=== PATIENT | female | born 1990 ===

== ENCOUNTER 2016-12-30 12:58 | Emergency (ER) | payer OTHER ==
[2016-12-30 12:58] VITALS: BMI 25.8
[2016-12-30 13:05] VITALS: BP 120/70; PULSE 84; RESP 20; TEMP 98; O2SAT 98
--- NOTE | 2016-12-30 13:31 | ED PDOC ---
Lower Extremity Pain/Injury Time Seen by Provider: 12/30/16 12:58 Chief Complaint (Nursing): Lower Extremity Problem/Injury Chief Complaint (Provider): Lower Extremity Problem/Injury History Per: Patient History/Exam Limitations: no limitations Onset/Duration Of Symptoms: Days (xlast night) Current Symptoms Are (Timing): Still Present Additional Complaint(s): Rosemary Fair is a 26 year old female who presents to the emergency department with a complaint of left sided back pain radiating to her left leg associated with pain to her left hand (third finger) Past Medical History Vital Signs: Last Vital Signs Temp 98 F 12/30/16 13:03 Pulse 84 12/30/16 13:03 Resp 20 12/30/16 13:03 BP 120/70 12/30/16 13:03 Pulse Ox 98 12/30/16 13:03 - Medical History PMH: Migraine - Surgical History Surgical History: Appendectomy - Family History Family History: States: Unknown Family Hx - Home Medications Home Medications: Ambulatory Orders Medication Instructions Recorded Ibuprofen [Advil] 2 tab PO PRN PRN 10/12/16 Cyclobenzaprine [Cyclobenzaprine 10 mg PO BID #14 tab 12/30/16 HCl] Ibuprofen [Motrin] 400 mg PO Q6 #30 tab 12/30/16 - Allergies Allergies/Adverse Reactions: Allergies Allergy/AdvReac Type Severity Reaction Status Date / Time No Known Allergies Allergy Verified 12/30/16 13:03 - ECG O2 Sat by Pulse Oximetry: 98 - Radiology X-Ray: Interpreted by Ms X-Ray Interpretation: No Acute Disease Medical Decision Making Medical Decision Making: dx: back contusion/finger sprain will be d.c on flexril and motrin for pain control advised pain will persist for at least 2-3 days and to f/u with pmd if still persistent. Disposition - Clinical Impression Clinical Impression: Low back strain, Back contusion, Finger contusion - Patient ED Disposition Is Patient to be Admitted: No Counseled Patient/Family Regarding: Studies Performed, Diagnosis, Need For Followup, Rx Given - Disposition Disposition: Routine/Home Disposition Time: 13:52 Condition: STABLE Prescriptions: Cyclobenzaprine [Cyclobenzaprine HCl] 10 mg PO BID #14 tab Ibuprofen [Motrin] 400 mg PO Q6 #30 tab Instructions: Contusion in Adults (ED)
--- NOTE | 2016-12-30 15:13 | RAD ---
PROCEDURE: Left Hand Radiographs. HISTORY: hand injury COMPARISON: None available. FINDINGS: BONES: No acute displaced fracture. JOINTS: No dislocation. SOFT TISSUES: Unremarkable. No evidence of radiopaque foreign body. OTHER FINDINGS: None. IMPRESSION: No acute displaced fracture, dislocation, or significant joint effusion identified. If symptoms persist, or if there is continued clinical concern, x-ray follow-up in 7-10 days should be considered.
== END 2016-12-30 14:47 | disposition home or self-care (01) ==
LOC: H.ER 12:58
DX: M79.605 Pain in left leg (principal); S39.012A Strain of muscle, fascia and tendon of lower back, initial encounter; S30.0XXA Contusion of lower back and pelvis, initial encounter; S60.032A Contusion of left middle finger without damage to nail, initial encounter; W10.8XXA Fall (on) (from) other stairs and steps, initial encounter

== ENCOUNTER 2017-01-04 19:02 | Emergency (ER) | payer OTHER ==
[2017-01-04 19:02] VITALS: BMI 25.8
[2017-01-04 19:29] VITALS: BP 124/58; PULSE 88; RESP 18; TEMP 98.5; O2SAT 99
--- NOTE | 2017-01-04 20:19 | ED PDOC ---
HPI: Eye Injury/Pain Time Seen by Provider: 01/04/17 19:52 Chief Complaint (Nursing): Eye Problem Chief Complaint (Provider): B/l eye irritation History Per: Patient History/Exam Limitations: no limitations Onset/Duration Of Symptoms: Days Current Symptoms Are (Timing): Still Present Injury To Eye?: No Severity: Moderate Wears Contact Lens?: No Associated Symptoms: Swelling, Itching, Discharge From Eye Additional History Per: Patient Additional Complaint(s): The pt is a 26yo female, presents to ED for evaluation of bilateral eye irritation since she started using a new mascara. Pt reports itching, discharge from her eye as well as associated swelling. Pt denies any injury or trauma to eyes. Offers no additional medical complaints. Past Medical History Reviewed: Historical Data, Nursing Documentation, Vital Signs Vital Signs: Last Vital Signs Temp 98.5 F 01/04/17 19:27 Pulse 88 01/04/17 19:27 Resp 18 01/04/17 19:27 BP 124/58 L 01/04/17 19:27 Pulse Ox 99 01/04/17 19:27 - Medical History PMH: No Chronic Diseases, Migraine - Surgical History Surgical History: Appendectomy - Family History Family History: States: Unknown Family Hx - Home Medications Home Medications: Ambulatory Orders Medication Instructions Recorded Ibuprofen [Advil] 2 tab PO PRN PRN 10/12/16 Cyclobenzaprine [Cyclobenzaprine 10 mg PO BID #14 tab 12/30/16 HCl] Ibuprofen [Motrin] 400 mg PO Q6 #30 tab 12/30/16 Ciprofloxacin 0.3% [Ciloxan 0.3% 1 drop BOTHEYES QID #1 bottle 01/04/17 Ophth SOLN] Olopatadine 0.1% Opht [Patanol 5 1 drop BOTHEYES BID #1 bottle 01/04/17 Ml] - Allergies Allergies/Adverse Reactions: Allergies Allergy/AdvReac Type Severity Reaction Status Date / Time No Known Allergies Allergy Verified 12/30/16 13:03 Review of Systems ROS Statement: Except As Marked, All Systems Reviewed And Found Negative Eyes: Positive for: Redness, Other (swelling, discharge) Physical Exam - Reviewed Nursing Documentation Reviewed: Yes Vital Signs Reviewed: Yes - Physical Exam Appears: Positive for: Well, Non-toxic, No Acute Distress Head Exam: Positive for: ATRAUMATIC, NORMAL INSPECTION, NORMOCEPHALIC Skin: Positive for: Normal Color, Warm, DRY Eye Exam: Positive for: EOMI, PERRL, Other (visual acuity 20/40 left, right and bilaterally. no fluoroscene uptake.) Neck: Positive for: Normal, Supple Respiratory: Negative for: Respiratory Distress Neurologic/Psych: Positive for: Alert, Oriented - ECG O2 Sat by Pulse Oximetry: 99 Medical Decision Making Medical Decision Making: Time: 1999 Impression: Eye irritation due to new mascara use Plan: -- Fluoroscene eye exam -- no uptake noted. Pt stable for d/c home. Advised to stop use of eye products. Will give pt Rx eye drops and advised to f/u with Dr. Desai, opthalmologist. Scribe Attestation: Documented by Mayra Fitzpatrick acting as a scribe for VALENTIN Whalen Provider Attestation: All medical record entries made by the Scribe were at my direction and personally dictated by me. I have reviewed the chart and agree that the record accurately reflects my personal performance of the history, physical exam, medical decision making, and the department course for this patient. I have also personally directed, reviewed, and agree with the discharge instructions and disposition. Disposition - Clinical Impression Clinical Impression: Conjunctivitis - Patient ED Disposition Is Patient to be Admitted: No - Disposition Referrals: Barry Desai MD [Staff Provider] - Disposition: Routine/Home Disposition Time: 20:53 Condition: FAIR Prescriptions: Ciprofloxacin 0.3% [Ciloxan 0.3% Ophth SOLN] 1 drop BOTHEYES QID #1 bottle Olopatadine 0.1% Opht [Patanol 5 Ml] 1 drop BOTHEYES BID #1 bottle Instructions: Conjunctivitis (ED) Forms: [facility] ED School/Work Excuse Print Language: GEORGIAN
== END 2017-01-04 20:53 | disposition home or self-care (01) ==
LOC: H.ER 19:02
DX: H10.9 Unspecified conjunctivitis (principal)

== ENCOUNTER 2017-04-21 10:14 | Emergency (ER) | payer OTHER ==
[2017-04-21 10:24] VITALS: BP 113/72; PULSE 91; TEMP 98.4; O2SAT 98
[2017-04-21 10:26] VITALS: BMI 28.7
[2017-04-21 11:07] VITALS: RESP 19
[2017-04-21 11:31] LABS: BASO # 0.1 K/uL (0.0-0.2); BASO % 0.4 % (0.0-2.0); EOS # 0.1 K/uL (0.0-0.7); EOS % 0.9 % (0.0-4.0); HEMATOCRIT 43.2 % (34.0-47.0); LYMPH # 2.1 K/uL (1.0-4.3); MEAN CELL VOLUME 83.3 fl (81.0-99.0); MEAN CORPUSCULAR HEMOGLOBIN 27.4 pg (27.0-31.0); MEAN CORPUSCULAR HGB CONC 32.9 g/dL (33.0-37.0); MEAN PLATELET VOLUME 8.3 fl (7.2-11.7); MONO # 0.9 K/uL (0.0-0.8); MONO % 6.6 % (0.0-10.0); NEUT # 10.8 K/uL (1.8-7.0); NEUT % 77.1 % (50.0-75.0); RED CELL DISTRIBUTION WIDTH 14.6 % (11.5-14.5); WHITE BLOOD COUNT 14.1 K/uL (4.8-10.8)
--- NOTE | 2017-04-21 11:59 | ED PDOC ---
HPI: CCC, URI, Sore Throat Time Seen by Provider: 04/21/17 10:50 Chief Complaint (Nursing): Shortness Of Breath Chief Complaint (Provider): SOB History Per: Patient History/Exam Limitations: no limitations Additional Complaint(s): 26yo F inED for eval of cough x 1 month, worsened this week with cough-green sputum, malaise, sore throat, fever-100.8 and pleurtic chest pain. negative: vomiting nausea abd pain foreign travel orthopena. PERC negative. Past Medical History Reviewed: Historical Data, Nursing Documentation, Vital Signs Vital Signs: Last Vital Signs Temp 98.4 F 04/21/17 10:24 Pulse 91 H 04/21/17 10:24 Resp 19 04/21/17 10:48 BP 113/72 04/21/17 10:24 Pulse Ox 98 04/21/17 10:48 - Medical History PMH: Asthma, Migraine - Surgical History Surgical History: Appendectomy - Family History Family History: States: Unknown Family Hx - Home Medications Home Medications: Ambulatory Orders Medication Instructions Recorded Ibuprofen [Advil] 2 tab PO PRN PRN 10/12/16 Cyclobenzaprine [Cyclobenzaprine 10 mg PO BID #14 tab 12/30/16 HCl] Ibuprofen [Motrin] 400 mg PO Q6 #30 tab 12/30/16 Ciprofloxacin 0.3% [Ciloxan 0.3% 1 drop BOTHEYES QID #1 bottle 01/04/17 Ophth SOLN] Olopatadine 0.1% Opht [Patanol 5 1 drop BOTHEYES BID #1 bottle 01/04/17 Ml] Albuterol 0.083% [Albuterol 0.5 ml IH Q4 #20 neb 04/21/17 Sulfate 3 Ml] Albuterol HFA [Ventolin HFA 90 2 puff IH Q6 #200 puff 04/21/17 mcg/actuation (8 g)] Azithromycin [Zithromax] 250 mg PO DAILY #6 tab 04/21/17 Mask, Face [Nebulizer Aerosol Mask 1 dev XX PRN PRN #1 dev 04/21/17 Adult] Non-Formulary 1 ea XX DAILY #1 ea 04/21/17 - Allergies Allergies/Adverse Reactions: Allergies Allergy/AdvReac Type Severity Reaction Status Date / Time No Known Allergies Allergy Verified 04/21/17 10:42 Curb-65 Severity Score - CURB-65 Severity Score Confusion: No Bun >19mg/dl (>7mmol/L): No Respiratory Rate greater than/equal to 30: No Systolic BP <90 or Diastolic BP less than/equal 60mmHg: No Age >64: No Curb-65 Score: 0 Percentage 30-day mortality: 0.6% Review of Systems ROS Statement: Except As Marked, All Systems Reviewed And Found Negative Constitutional: Positive for: Fever Respiratory: Positive for: Cough, Shortness of Breath, Pleuritic Pain, Sputum Physical Exam - Reviewed Nursing Documentation Reviewed: Yes Vital Signs Reviewed: Yes - Physical Exam Appears: Positive for: Non-toxic, No Acute Distress, Uncomfortable Head Exam: Positive for: ATRAUMATIC, NORMAL INSPECTION, NORMOCEPHALIC Skin: Positive for: Normal Color, Warm, DRY ENT: Positive for: Normal ENT Inspection Neck: Positive for: Normal, Painless ROM Cardiovascular/Chest: Positive for: Regular Rate, Rhythm Respiratory: Positive for: Normal Breath Sounds Gastrointestinal/Abdominal: Positive for: Normal Exam, Bowel Sounds, Soft Neurologic/Psych: Positive for: Alert, Oriented - Laboratory Results Result Diagrams: 04/21/17 11:22 - ECG O2 Sat by Pulse Oximetry: 98 - Radiology X-Ray: Interpreted by Me Medical Decision Making Medical Decision Making: dx: upper resp. infection-pt with elevated WBC, pt give azithromycin in ED and will be d.c with albuterol + nebulizer and Zpack. f/u with pmd pt understands and agrees. 04/21/17 04/21/17 11:22 11:22 WBC 14.1 H RBC 5.19 Hgb 14.2 Hct 43.2 MCV 83.3 MCH 27.4 MCHC 32.9 L RDW 14.6 H Plt Count 363 MPV 8.3 Neut % (Auto) 77.1 H Lymph % (Auto) 15.0 L [place] % (Auto) 6.6 Eos % (Auto) 0.9 Baso % (Auto) 0.4 Neut # 10.8 H Lymph # 2.1 [place] # 0.9 H Eos # 0.1 Baso # 0.1 Grp A Beta Strep Ag Negative Orders Category Date Time Status CHEST TWO VIEWS (PA/LAT) [RAD] Stat Exams 04/21/17 11:12 Ordered CBC (WITH DIFFERENTIAL) Stat RUPERT 04/21/17 11:22 Completed Azithromycin [Zithromax] Med 04/21/17 11:54 Stat 500 mg PO STAT STA THROAT CULTURE Stat Micro 04/21/17 11:22 Received RAPID STREP GROUP A ANTIGEN Stat Serology 04/21/17 11:22 Completed Disposition - Clinical Impression Clinical Impression: Respiratory tract infection - Patient ED Disposition Is Patient to be Admitted: No Counseled Patient/Family Regarding: Studies Performed, Diagnosis, Need For Followup, Rx Given - Disposition Referrals: [facility] [Outside] [facility] [Outside] Disposition: Routine/Home Disposition Time: 12:04 Condition: STABLE Prescriptions: Albuterol 0.083% [Albuterol Sulfate 3 Ml] 0.5 ml IH Q4 #20 neb Albuterol HFA [Ventolin HFA 90 mcg/actuation (8 g)] 2 puff IH Q6 #200 puff Azithromycin [Zithromax] 250 mg PO DAILY #6 tab Mask, Face [Nebulizer Aerosol Mask Adult] 1 dev XX PRN PRN #1 dev PRN Reason: Wheezing Non-Formulary 1 ea XX DAILY #1 ea Instructions: Upper Respiratory Infection (ED) Print Language: LUXEMBOURGISH
--- NOTE | 2017-04-21 12:52 | RAD ---
HISTORY: cough COMPARISON: No prior study available for comparison TECHNIQUE: Chest PA and lateral FINDINGS: LUNGS: No active pulmonary disease. PLEURA: No significant pleural effusion identified. No pneumothorax apparent. CARDIOVASCULAR: Normal. OSSEOUS STRUCTURES: Minor multilevel degenerative spondylosis of the thoracic spine. VISUALIZED UPPER ABDOMEN: Normal. OTHER FINDINGS: None. IMPRESSION: No acute cardiopulmonary disease.
== END 2017-04-21 13:05 | disposition home or self-care (01) ==
LOC: H.ER 10:14
DX: J06.9 Acute upper respiratory infection, unspecified (principal); R06.2 Wheezing

== ENCOUNTER 2017-06-27 16:02 | Emergency (ER) | payer OTHER ==
[2017-06-27 16:02] VITALS: BMI 28.7
[2017-06-27 17:05] VITALS: BP 108/78; PULSE 82; RESP 16; TEMP 97.7; O2SAT 100
[2017-06-27] MEDS ORDERED: Sodium Chloride 0.9% 1,000 ML IV STA (17:16)
[2017-06-27 17:53] LABS: BASO # 0.1 K/uL (0.0-0.2); BASO % 0.8 % (0.0-2.0); EOS # 0.2 K/uL (0.0-0.7); EOS % 1.6 % (0.0-4.0); HEMATOCRIT 41.1 % (34.0-47.0); LYMPH # 2.4 K/uL (1.0-4.3); LYMPH % 18.2 % (20.0-40.0); MEAN CELL VOLUME 84.2 fl (81.0-99.0); MEAN CORPUSCULAR HEMOGLOBIN 27.7 pg (27.0-31.0); MEAN CORPUSCULAR HGB CONC 32.9 g/dL (33.0-37.0); MEAN PLATELET VOLUME 8.3 fl (7.2-11.7); MONO # 0.7 K/uL (0.0-0.8); MONO % 5.4 % (0.0-10.0); NEUT # 9.9 K/uL (1.8-7.0); NRBC % 0.2 % (0.0-0.0); RED CELL DISTRIBUTION WIDTH 14.7 % (11.5-14.5); WHITE BLOOD COUNT 13.4 K/uL (4.8-10.8)
--- NOTE | 2017-06-27 18:01 | ED PDOC ---
HPI: Female Pain Time Seen by Provider: 06/27/17 17:04 Chief Complaint (Nursing): Abdominal Pain Chief Complaint (Provider): Pelvic pain History Per: Patient History/Exam Limitations: no limitations Onset/Duration Of Symptoms: Days (x1 week) Current Symptoms Are (Timing): Still Present Pain Scale Rating Of: 9 Quality Of Discomfort: Cramping (mild) Associated Symptoms: Nausea, Vomiting. denies: Fever, Diarrhea, Urinary Symptoms, Other (vaginal bleeding) Additional Complaint(s): Rosemary King is a 27 year old female, with a past medical history of asthma, who presents to the emergency department complaining of persistent nausea and multiple daily episodes of vomiting for the last week associated with mild crampy pelvic pain and fatigue. She reports no care yet for this . Patient denies any vaginal bleeding, fever or urinary symptoms. No further medical complaints. PMD: None provided. Abnormal Vaginal Bleeding: No : 1 Para: 0 Past Medical History Reviewed: Historical Data, Nursing Documentation, Vital Signs Vital Signs: Last Vital Signs Temp 97.7 F 06/27/17 17:01 Pulse 82 06/27/17 17:01 Resp 16 06/27/17 17:01 BP 108/78 06/27/17 17:01 Pulse Ox 100 06/27/17 17:01 - Medical History PMH: Asthma, Migraine - Surgical History Surgical History: Appendectomy - Family History Family History: States: Unknown Family Hx, Hypertension - Social History Ex-Smoker (has not smoked in the last 12 months): Yes Alcohol: None Drugs: Denies - Home Medications Home Medications: Ambulatory Orders Medication Instructions Recorded Ibuprofen [Advil] 2 tab PO PRN PRN 10/12/16 Cyclobenzaprine [Cyclobenzaprine 10 mg PO BID #14 tab 12/30/16 HCl] Ibuprofen [Motrin] 400 mg PO Q6 #30 tab 12/30/16 Ciprofloxacin 0.3% [Ciloxan 0.3% 1 drop BOTHEYES QID #1 bottle 01/04/17 Ophth SOLN] Olopatadine 0.1% Opht [Patanol 5 1 drop BOTHEYES BID #1 bottle 01/04/17 Ml] Albuterol 0.083% [Albuterol 0.5 ml IH Q4 #20 neb 04/21/17 Sulfate 3 Ml] Albuterol HFA [Ventolin HFA 90 2 puff IH Q6 #200 puff 04/21/17 mcg/actuation (8 g)] Azithromycin [Zithromax] 250 mg PO DAILY #6 tab 04/21/17 Mask, Face [Nebulizer Aerosol Mask 1 dev XX PRN PRN #1 dev 04/21/17 Adult] Non-Formulary 1 ea XX DAILY #1 ea 04/21/17 Famotidine [Pepcid] 40 mg PO DAILY PRN #14 tab 05/11/17 Metoclopramide [Reglan] 1 tab PO TID PRN #20 tab 05/11/17 Multivit/Folic Acid/I 1 tab PO DAILY #100 tab 05/11/17 [ Plus] - Allergies Allergies/Adverse Reactions: Allergies Allergy/AdvReac Type Severity Reaction Status Date / Time No Known Allergies Allergy Verified 06/27/17 17:01 Review of Systems ROS Statement: Except As Marked, All Systems Reviewed And Found Negative Constitutional: Positive for: Other (fatigue). Negative for: Fever Gastrointestinal: Positive for: Nausea, Vomiting (multiple episodes) Genitourinary Female: Positive for: Pelvic Pain (mild crampy). Negative for: Dysuria, Hematuria, Vaginal Bleeding Physical Exam - Reviewed Nursing Documentation Reviewed: Yes Vital Signs Reviewed: Yes - Physical Exam Appears: Positive for: Non-toxic, No Acute Distress Head Exam: Positive for: ATRAUMATIC, NORMAL INSPECTION Skin: Positive for: Normal Color, Warm, Dry Eye Exam: Positive for: Normal appearance, EOMI, PERRL Neck: Positive for: Normal, Painless ROM, Supple Cardiovascular/Chest: Positive for: Regular Rate, Rhythm. Negative for: Murmur Respiratory: Positive for: Normal Breath Sounds. Negative for: Respiratory Distress Gastrointestinal/Abdominal: Positive for: Normal Exam, Bowel Sounds, Soft. Negative for: Tenderness, Guarding, Rebound Back: Positive for: Normal Inspection. Negative for: L CVA Tenderness, R CVA Tenderness Extremity: Positive for: Normal ROM. Negative for: Deformity, Swelling Neurologic/Psych: Positive for: Alert, Oriented - Laboratory Results Result Diagrams: 06/27/17 17:43 06/27/17 17:43 - ECG O2 Sat by Pulse Oximetry: 100 (RA) Pulse Ox Interpretation: Normal Medical Decision Making Medical Decision Making: Initial Impression: hyperemesis on Initial Plan: --Comp Metabolic Panel --CBC w/ differential --Reglan 10 mg IVP --NS IV 1,000 ml @ 1,000 mls/hr --Urinalysis --OB preg 1st Tri & OB transvag [US] --reevaluation labs reviewed, mild elev WBC and evidence dehydration US pending 7pm, endorse Dr Howell Scribe Attestation: Documented by Noah Murray, acting as a scribe for Forrest Penaloza MD Provider Scribe Attestation: All medical record entries made by the Scribe were at my direction and personally dictated by me. I have reviewed the chart and agree that the record accurately reflects my personal performance of the history, physical exam, medical decision making, and the department course for this patient. I have also personally directed, reviewed, and agree with the discharge instructions and disposition. Disposition - Clinical Impression Clinical Impression: Hyperemesis gravidarum - Patient ED Disposition Is Patient to be Admitted: Transfer of Care - Disposition Disposition Time: 19:02 Condition: STABLE Forms: [employer] (Tunisian) Patient Signed Over To: Ke Howell Handoff Comments: US/ re-eval
[2017-06-27 18:04] LABS: ALB/GLOB RATIO 1.3 (1.0-2.1); ALKALINE PHOSPHATASE 59 U/L (38-126); ALT/SGPT 30 U/L (9-52); AST/SGOT 19 U/L (14-36); BILIRUBIN,TOTAL 0.6 mg/dl (0.2-1.3); BLOOD UREA NITROGEN 7 mg/dl (7-17); CALCIUM 9.2 mg/dL (8.4-10.2); CARBON DIOXIDE 20 mmol/L (22-30); CHLORIDE 108 mmol/L (98-107); GFR AFRICAN-AMERICAN > 60; GLUCOSE,RANDOM 74 mg/dL (65-105); POTASSIUM 4.2 MMOL/L (3.6-5.0); SODIUM 137 mmol/l (132-148); TOTAL PROTEIN 7.1 G/DL (6.3-8.2)
[2017-06-27 18:19] LABS: RBC URINE 3 /hpf (0-3); URINE BACTERIA MOD (<OCC); URINE BILIRUBIN NEGATIVE (NEGATIVE); URINE BLOOD NEGATIVE (NEGATIVE); URINE COLOR YELLOW (YELLOW); URINE GLUCOSE (UA) NEG (Normal); URINE KETONE NEGATIVE (NEGATIVE); URINE LEUKOCYTE ESTERASE NEG Leu/uL (Negative); URINE PROTEIN NEGATIVE (NEGATIVE); URINE UROBILINOGEN 0.2-1.0 mg/dL (0.2-1.0); WBC URINE 2 /hpf (0-5)
--- NOTE | 2017-06-27 19:30 | ED PDOC ---
- Laboratory Results Result Diagrams: 06/27/17 17:43 06/27/17 17:43 - ECG O2 Sat by Pulse Oximetry: 100 (RA) Medical Decision Making Medical Decision Makin:00 -Patient transferred [facility] by Dr. Penaloza, pending labs, ultrasound, and reevaluation 19:45 Obstetrics US FINDINGS: Gestation: Single live intrauterine gestation. heart rate of 155 beats per minute. [place]-rump length of 7.01 cm, correlating with gestational age of 13 weeks 1 day. Biparietal diameter of 2.42 cm, correlating with gestational age of 14 weeks 1 day. Uterus/cervix: No subchorionic hemorrhage. No cervical dilatation or effacement. Ovaries: Normal ovaries. No adnexal masses. Free fluid: No significant free fluid. IMPRESSION: 1. Single live intrauterine gestation. 21:00 -Labs reviewed and show no clinical significant abnormalities, except for urine which is indicative of UTI. Patient reports improvement of symptoms and is stable upon discharge. -Patient diagnosed with hyperemesis on and UTI. Disposition - Clinical Impression Clinical Impression: Hyperemesis gravidarum, Urinary tract infection - POA Present On Arrival: None - Disposition Disposition: Routine/Home Disposition Time: 21:00 Condition: STABLE Prescriptions: Metoclopramide [Reglan] 10 mg PO Q6 PRN #12 tab PRN Reason: Nausea/Vomiting Nitrofurantoin Macrocrystals [Macrobid] 100 mg PO BID #14 cap Instructions: Hyperemesis Gravidarum (ED), Urinary Tract Infection in (ED) Forms: [employer] (Welsh) Print Language: ANDORRAN
--- NOTE | 2017-06-27 19:46 | US ---
EXAM: US First Trimester, Transabdominal CLINICAL HISTORY: 27 years old, female; Pain; complicated by abdominal or pelvic pain; Generalized abdominal pain; First trimester; Gestational age or lmp: 03/25/2017; ; Additional info: 12wks preg pelvic pain no care TECHNIQUE: Real-time transabdominal obstetrical ultrasound of the maternal pelvis and a first trimester with image documentation. COMPARISON: No relevant prior studies available. FINDINGS: Gestation: Single live intrauterine gestation. heart rate of 155 beats per minute. [place]-rump length of 7.01 cm, correlating with gestational age of 13 weeks 1 day. Biparietal diameter of 2.42 cm, correlating with gestational age of 14 weeks 1 day. Uterus/cervix: No subchorionic hemorrhage. No cervical dilatation or effacement. Ovaries: Normal ovaries. No adnexal masses. Free fluid: No significant free fluid. IMPRESSION: 1. Single live intrauterine gestation.
== END 2017-06-27 21:25 | disposition home or self-care (01) ==
LOC: H.ER 16:02
DX: O21.0 Mild hyperemesis gravidarum (principal); O26.899 Other specified pregnancy related conditions, unspecified trimester; O23.40 Unspecified infection of urinary tract in pregnancy, unspecified trimester; J45.909 Unspecified asthma, uncomplicated
CPT/HCPCS: 76815; 80053; 81003; 85025; 96374; 99283; J2765; J7040

== ENCOUNTER 2017-08-12 14:08 | Emergency (ER) | payer OTHER ==
[2017-08-12 14:09] VITALS: BMI 28.7
[2017-08-12 14:47] VITALS: BP 99/57; PULSE 89; RESP 18; TEMP 97.6; O2SAT 96
[2017-08-12] MEDS ORDERED: Sodium Chloride 0.9% 1,000 ML IV STA (15:03)
--- NOTE | 2017-08-12 15:04 | ED PDOC ---
HPI: Abdomen Time Seen by Provider: 08/12/17 14:27 Chief Complaint (Nursing): GI Problem Chief Complaint (Provider): Vomiting History Per: Patient Additional Complaint(s): 27 yo female, , denies any PMH, states she is 19 weeks , this a.m.started having lower abdominal cramping, headache w/ vomiting x 1, also c/ o low back pain x 1 month. Denies vaginal bleeding. Past Medical History Vital Signs: Last Vital Signs Temp 97.6 F 08/12/17 14:32 Pulse 89 08/12/17 14:32 Resp 18 08/12/17 14:32 BP 99/57 L 08/12/17 14:32 Pulse Ox 96 08/12/17 14:32 - Medical History PMH: Asthma, Migraine - Surgical History Surgical History: Appendectomy - Family History Family History: States: Unknown Family Hx, Hypertension - Home Medications Home Medications: Ambulatory Orders Medication Instructions Recorded Ibuprofen [Advil] 2 tab PO PRN PRN 10/12/16 Cyclobenzaprine [Cyclobenzaprine 10 mg PO BID #14 tab 12/30/16 HCl] Ibuprofen [Motrin] 400 mg PO Q6 #30 tab 12/30/16 Ciprofloxacin 0.3% [Ciloxan 0.3% 1 drop BOTHEYES QID #1 bottle 01/04/17 Ophth SOLN] Olopatadine 0.1% Opht [Patanol 5 1 drop BOTHEYES BID #1 bottle 01/04/17 Ml] Albuterol 0.083% [Albuterol 0.5 ml IH Q4 #20 neb 04/21/17 Sulfate 3 Ml] Albuterol HFA [Ventolin HFA 90 2 puff IH Q6 #200 puff 04/21/17 mcg/actuation (8 g)] Azithromycin [Zithromax] 250 mg PO DAILY #6 tab 04/21/17 Mask, Face [Nebulizer Aerosol Mask 1 dev XX PRN PRN #1 dev 04/21/17 Adult] Non-Formulary 1 ea XX DAILY #1 ea 04/21/17 Famotidine [Pepcid] 40 mg PO DAILY PRN #14 tab 05/11/17 Metoclopramide [Reglan] 1 tab PO TID PRN #20 tab 05/11/17 Multivit/Folic Acid/I 1 tab PO DAILY #100 tab 05/11/17 [ Plus] Metoclopramide [Reglan] 10 mg PO Q6 PRN #12 tab 06/27/17 Nitrofurantoin Macrocrystals 100 mg PO BID #14 cap 06/27/17 [Macrobid] - Allergies Allergies/Adverse Reactions: Allergies Allergy/AdvReac Type Severity Reaction Status Date / Time No Known Allergies Allergy Verified 08/12/17 14:32 - ECG O2 Sat by Pulse Oximetry: 96 Disposition - Disposition
[2017-08-12 16:01] LABS: BASO # 0.1 K/uL (0.0-0.2); BASO % 0.4 % (0.0-2.0); EOS # 0.1 K/uL (0.0-0.7); HEMOGLOBIN 11.7 g/dL (12.0-16.0); LYMPH # 2.1 K/uL (1.0-4.3); LYMPH % 16.7 % (20.0-40.0); MEAN CELL VOLUME 84.8 fl (81.0-99.0); MEAN CORPUSCULAR HEMOGLOBIN 27.9 pg (27.0-31.0); MEAN CORPUSCULAR HGB CONC 32.9 g/dL (33.0-37.0); MEAN PLATELET VOLUME 8.8 fl (7.2-11.7); MONO # 0.6 K/uL (0.0-0.8); MONO % 4.9 % (0.0-10.0); NEUT # 9.7 K/uL (1.8-7.0); RBC 4.2 Mil/uL (3.80-5.20); RED CELL DISTRIBUTION WIDTH 14.1 % (11.5-14.5); WHITE BLOOD COUNT 12.6 K/uL (4.8-10.8)
[2017-08-12 16:30] LABS: SQUAMOUS EPITHIAL 3 /hpf (0-5); URINE BILIRUBIN NEGATIVE (NEGATIVE); URINE BLOOD NEGATIVE (NEGATIVE); URINE CLARITY SLIGHTY-CLOUDY (Clear); URINE COLOR YELLOW (YELLOW); URINE GLUCOSE (UA) NEG (Normal); URINE LEUKOCYTE ESTERASE NEG Leu/uL (Negative); URINE NITRATE NEGATIVE (NEGATIVE); URINE PROTEIN NEGATIVE (NEGATIVE); URINE UROBILINOGEN 0.2-1.0 mg/dL (0.2-1.0)
[2017-08-12 16:37] LABS: ALB/GLOB RATIO 1.1 (1.0-2.1); ALBUMIN 3.5 g/dL (3.5-5.0); ALT/SGPT 27 U/L (9-52); AST/SGOT 17 U/L (14-36); BLOOD UREA NITROGEN 7 mg/dl (7-17); CALCIUM 9.5 mg/dL (8.4-10.2); GFR AFRICAN-AMERICAN > 60; GFR NON-AFRICAN AMERICAN > 60
--- NOTE | 2017-08-12 19:19 | US ---
EXAM: US After First Trimester, Transabdominal CLINICAL HISTORY: 27 years old, female; Pain; complicated by abdominal or pelvic pain; Generalized abdominal pain; Second trimester; Gestational age or lmp: Lmp 03.25.2017; ; Additional info: Abdominal pain in TECHNIQUE: Real-time transabdominal obstetrical ultrasound of the maternal pelvis and a second or third trimester with image documentation. COMPARISON: No relevant prior studies available. FINDINGS: Fetus: Single live intrauterine gestation. Heart rate: heart rate of 139 beats per minute. Presentation: Cephalic. Placenta: Anterior fundal. No placenta previa or abruption. Amniotic fluid: Normal. Anatomy: No gross anomaly is appreciated. BIOMETRICS Gestational age by US: Estimated gestational age of 20 weeks 0 days by measurements. EFW: Estimated weight of 325 g (44.3%). BPD: 4.6 cm, correlating with 20 weeks 0 days. HC: 17.4 cm, correlating with 20 weeks 0 days. AC: 14.7 cm, correlating with 20 weeks 0 days. FL: 3.2 cm, correlating with 20 weeks 0 days. MATERNAL: Uterus: 2.4 x 1.4 x 2.5 cm anterior uterine mass. Cervix: No cervical dilatation or effacement. Adnexa: Ovaries not visualized. No adnexal masses. Free fluid: No significant free fluid. IMPRESSION: 1. Single live intrauterine gestation. 2. Probable fibroid.
== END 2017-08-12 20:25 | disposition home or self-care (01) ==
LOC: H.ER 14:08
DX: O21.9 Vomiting of pregnancy, unspecified (principal)
CPT/HCPCS: 76815; 80053; 81003; 85025; 99283; J2405; J7040

== ENCOUNTER 2017-08-28 13:10 | Emergency (ER) | payer OTHER ==
[2017-08-28 13:51] VITALS: BMI 34.0
[2017-08-28 14:51] LABS: SQUAMOUS EPITHIAL 7 /hpf (0-5); URINE AMORPHOUS SEDIMENT RARE /ul (<OCC); URINE BILIRUBIN NEGATIVE (NEGATIVE); URINE BLOOD NEGATIVE (NEGATIVE); URINE CLARITY CLOUDY (Clear); URINE COLOR YELLOW (YELLOW); URINE GLUCOSE (UA) NEG (Normal); URINE LEUKOCYTE ESTERASE NEG Leu/uL (Negative); URINE NITRATE NEGATIVE (NEGATIVE); URINE PROTEIN NEGATIVE (NEGATIVE); URINE UROBILINOGEN 0.2-1.0 mg/dL (0.2-1.0)
[2017-08-28 15:33] VITALS: BP 147/92; PULSE 94; RESP 18; TEMP 97.6; O2SAT 98
--- NOTE | 2017-08-28 15:40 | OBDCSUM ---
Datetime: 08/28/2017 15:10 Discharged to, Provider: Other Follow up at, Provider: ER Disch Instr Activity: Normal activity Disch Instr Diet: Regular Discharge Time: 08/28/2017 15:15 Follow up in weeks, Provider: See private MD next scvhedule appointment Disch Referrals: None Discharge Diagnosis Prov Other: rule out rupture
--- NOTE | 2017-08-28 15:41 | OBHP ---
Datetime: 08/28/2017 13:55 IP Adm Impression: , intrauterine Admit Comment, IP Provider: 27 yo at 22.2 weeks by LMP 03/25/17 in ED for suspected rupture of m embranes. Pt has had cough and flu like sx for over a week, and feels like every time she coughs, flu id comes out of her vagina- she is unsure if she ruptured membranes. Denies vaginal bleeding, denies contractions, reports movement. ROS: pos for flu like sx: cough, body aches care: [facility]. OBGYN hx: this is first . no hx abnormal pap, fibroids, cysts, other application integration engineer issues. Past med hx: denies Past surg hx: appendectomy Fam hx: father from stomach cancer, denies chronic illness in [facility] like dm2, htn Social hx: denies tobacco, alcohol, drug use Allergies: nkda Meds: PNV, occasional tylenol PE: Gen: alert, oriented, NAD CV: S1S2,RRR Resp: clear breath sounds bilaterally, normal effort Abd: gravid, +BS Ext: no tenderness, no deformity Sterile speculum exam - os closed, no pooling, no visible fluid exiting os when pt coughs. Nitrazine neg. A: 22 yo at 22+ weeks gestation by LMP, rupture of membranes unlikely/ruled out given speculu m exam findings. P: Urinalysis Addendum: Urinalysis results- neg nitrates, leuk esterase, protein. Pt stable from OB perspective- can be transferred to main ED for flu-like sx. Pt seen/discussed w/ Dr. Banegas -[email or web address] Addendum by Dr. banegas: I have evaluated the patient independently and I agree with the above. Extremities - PN: Normal Abdomen - PN: Normal Back - PN: Normal Breast - PN: Not Done Lungs - PN: Normal Heart - PN: Normal Thyroid - PN: Not Done Neurologic - PN: Normal HEENT - PN: Normal General - PN: Normal FHR - Baseline A Provider: 145 Membranes, Provider: Intact Contraction Comments Provider: none Pool Provider: Negative Nitrazine Provider: Negative EGA AdmitDate IP: 21.4 Vital Signs Provider: Reviewed; Within Normal Limits IP Chief Complaint: Suspected ruptured membranes Dilatation, Provider: 0 Genitourinary Exam: Normal DTRs - PN: Not Done
--- NOTE | 2017-08-28 16:19 | ED PDOC ---
HPI: General Adult Chief Complaint (Provider): Flu-like Symptoms History Per: Patient History/Exam Limitations: no limitations Onset/Duration Of Symptoms: Days (x2) Current Symptoms Are (Timing): Still Present <Camelia Barnes - Last Filed: 08/28/17 16:59> <Dawit Velasco - Last Filed: 08/28/17 18:22> Time Seen by Provider: 08/28/17 13:10 Chief Complaint (Nursing): Flu-like Symptoms Additional Complaint(s): Patient was originally seen by Provider in OB-ED. 27 year old female with a past medical history of asthma, who presents to the ED complaining of flu-like symptoms x2 days. Reports fever, cough, body aches, and headaches. States cough began 1 week ago, but other symptoms developed over the past 2 days. States she ate lobster yesterday then vomitted a few times. Denies diarrhea, but confirms epigastric pain. States she is 20 weeks . Patient was seen and cleared from OB-ED standpoint and sent to the ED. Denies vaginal bleeding, lower abdominal pain or urinary problems. PMD: Provider TBD (Camelia Barnes) Past Medical History Reviewed: Historical Data, Nursing Documentation, Vital Signs - Medical History PMH: Asthma, Migraine - Surgical History Surgical History: Appendectomy - Family History Family History: States: Unknown Family Hx, Hypertension <Camelia Barnes Placido - Last Filed: 08/28/17 16:59> <Dawit Velasco - Last Filed: 08/28/17 18:22> Vital Signs: Last Vital Signs Temp 97.6 F 08/28/17 15:31 Pulse 94 H 08/28/17 15:31 Resp 18 08/28/17 15:31 BP 147/92 H 08/28/17 15:31 Pulse Ox 98 08/28/17 16:59 - Home Medications Home Medications: Ambulatory Orders Medication Instructions Recorded Ibuprofen [Advil] 2 tab PO PRN PRN 10/12/16 Cyclobenzaprine [Cyclobenzaprine 10 mg PO BID #14 tab 12/30/16 HCl] Ibuprofen [Motrin] 400 mg PO Q6 #30 tab 12/30/16 Ciprofloxacin 0.3% [Ciloxan 0.3% 1 drop BOTHEYES QID #1 bottle 01/04/17 Ophth SOLN] Olopatadine 0.1% Opht [Patanol 5 1 drop BOTHEYES BID #1 bottle 01/04/17 Ml] Albuterol 0.083% [Albuterol 0.5 ml IH Q4 #20 neb 04/21/17 Sulfate 3 Ml] Albuterol HFA [Ventolin HFA 90 2 puff IH Q6 #200 puff 04/21/17 mcg/actuation (8 g)] Azithromycin [Zithromax] 250 mg PO DAILY #6 tab 04/21/17 Mask, Face [Nebulizer Aerosol Mask 1 dev XX PRN PRN #1 dev 04/21/17 Adult] Non-Formulary 1 ea XX DAILY #1 ea 04/21/17 Famotidine [Pepcid] 40 mg PO DAILY PRN #14 tab 05/11/17 Metoclopramide [Reglan] 1 tab PO TID PRN #20 tab 05/11/17 Multivit/Folic Acid/I 1 tab PO DAILY #100 tab 05/11/17 [ Plus] Metoclopramide [Reglan] 10 mg PO Q6 PRN #12 tab 06/27/17 Nitrofurantoin Macrocrystals 100 mg PO BID #14 cap 06/27/17 [Macrobid] Ondansetron ODT [Zofran ODT] 4 mg PO Q6 PRN #10 odt 08/12/17 Ondansetron [Zofran] 4 mg PO Q8H #10 tab 08/28/17 Oseltamivir [Tamiflu] 75 mg PO BID #10 cap 08/28/17 - Allergies Allergies/Adverse Reactions: Allergies Allergy/AdvReac Type Severity Reaction Status Date / Time No Known Allergies Allergy Verified 08/12/17 14:32 Review of Systems ROS Statement: Except As Marked, All Systems Reviewed And Found Negative Constitutional: Positive for: Fever, Other (body aches) Respiratory: Positive for: Cough Gastrointestinal: Positive for: Vomiting, Abdominal Pain. Negative for: Diarrhea Genitourinary Female: Negative for: Dysuria, Frequency, Incontinence, Vaginal Bleeding Neurological: Positive for: Headache <Orbelyan,Gerasim A - Last Filed: 08/28/17 16:59> Physical Exam - Reviewed Nursing Documentation Reviewed: Yes Vital Signs Reviewed: Yes - Physical Exam Appears: Positive for: Non-toxic, No Acute Distress Head Exam: Positive for: ATRAUMATIC, NORMAL INSPECTION, NORMOCEPHALIC Skin: Positive for: Normal Color, Warm, Dry. Negative for: Rash Eye Exam: Positive for: EOMI, Normal appearance, PERRL Neck: Positive for: Normal, Painless ROM, Supple Cardiovascular/Chest: Positive for: Regular Rate, Rhythm. Negative for: Murmur Respiratory: Positive for: Normal Breath Sounds. Negative for: Respiratory Distress Gastrointestinal/Abdominal: Positive for: Tenderness (mild epigastric) Back: Positive for: Normal Inspection. Negative for: L CVA Tenderness, R CVA Tenderness, Vertebral Tenderness Extremity: Positive for: Normal ROM. Negative for: Pedal Edema, Deformity Neurologic/Psych: Positive for: Alert, Oriented (x3). Negative for: Motor/ Sensory Deficits <Camelia Barnes - Last Filed: 08/28/17 16:59> - ECG O2 Sat by Pulse Oximetry: 98 (RA) Pulse Ox Interpretation: Normal <Camelia Barnes - Last Filed: 08/28/17 16:59> - Laboratory Results Result Diagrams: 08/28/17 17:00 08/28/17 17:00 <Dawit Velasco - Last Filed: 08/28/17 18:22> Medical Decision Making <Camelia Barnes - Last Filed: 08/28/17 16:59> <Dawit Velasco - Last Filed: 08/28/17 18:22> Medical Decision Making: Time: 16:18 Initial Impression: Flu-like symptoms, cough, and vomiting. Differential diagnoses include, but are not limited to influenza, mild asthma, exacerbation. In regards to abdominal pain with vomiting, differential diagnoses include, but are not limited to gastritis, pancreatitis, food poisoning r/o cholecystitis Initial Plan: --CMP --Lipase --CBC w/ differential --Lactated Ringers 1,000 mls/hr --Tylenol 650 mg PO --Zofran Inj 4 mg IVP --Rapid strep group A --Influenza A B --Urinalysis --Reevaluation Time: 17:00 Patient will be signed out to Dr. Velasco pending labs, reeval, and flu. Scribe Attestation: Documented by Saran Easley, acting as a scribe for Camelia Barnes MD. Provider Scribe Attestation: All medical record entries made by the Scribe were at my direction and personally dictated by me. I have reviewed the chart and agree that the record accurately reflects my personal performance of the history, physical exam, medical decision making, and the department course for this patient. I have also personally directed, reviewed, and agree with the discharge instructions and disposition. (Camelia Barnes) Disposition - Patient ED Disposition Is Patient to be Admitted: Transfer of Care - Disposition Disposition Time: 17:00 Patient Signed Over To: Dawit Velasco Handoff Comments: pending labs, reeval, and flu <Camelia Barnes - Last Filed: 08/28/17 16:59> - Patient ED Disposition Is Patient to be Admitted: No Counseled Patient/Family Regarding: Studies Performed, Diagnosis, Need For Followup, Rx Given - Disposition Disposition: Routine/Home Disposition Time: 18:20 <Dawit Velasco - Last Filed: 08/28/17 18:22> - Clinical Impression Clinical Impression: Influenza-like symptoms, Gastroenteritis - Disposition Referrals: [facility] [Outside] Condition: FAIR Prescriptions: Ondansetron [Zofran] 4 mg PO Q8H #10 tab Oseltamivir [Tamiflu] 75 mg PO BID #10 cap Instructions: Gastroenteritis (ED), Flu, Adult (DC) Forms: [employer] (Chinese)
[2017-08-28] MEDS: Lactated Ringer's 1,000 ML IV SCH ×2 (17:10→18:12)
[2017-08-28 17:35] LABS: BASO % 0.2 % (0.0-2.0); EOS # 0.2 K/uL (0.0-0.7); HEMOGLOBIN 11.9 g/dL (12.0-16.0); LYMPH # 2.3 K/uL (1.0-4.3); LYMPH % 15.6 % (20.0-40.0); MEAN CELL VOLUME 84.9 fl (81.0-99.0); MEAN CORPUSCULAR HEMOGLOBIN 27.8 pg (27.0-31.0); MEAN CORPUSCULAR HGB CONC 32.7 g/dL (33.0-37.0); MEAN PLATELET VOLUME 8.6 fl (7.2-11.7); MONO # 0.8 K/uL (0.0-0.8); MONO % 5.4 % (0.0-10.0); NEUT # 11.3 K/uL (1.8-7.0); NEUT % 77.8 % (50.0-75.0); RBC 4.3 Mil/uL (3.80-5.20); WHITE BLOOD COUNT 14.6 K/uL (4.8-10.8)
[2017-08-28 17:46] LABS: ALB/GLOB RATIO 1.1 (1.0-2.1); ALBUMIN 3.5 g/dL (3.5-5.0); ALT/SGPT 28 U/L (9-52); AST/SGOT 30 U/L (14-36); BLOOD UREA NITROGEN 8 mg/dl (7-17); GFR AFRICAN-AMERICAN > 60; GFR NON-AFRICAN AMERICAN > 60; LIPASE 47 U/L (23-300)
--- NOTE | 2017-08-28 18:23 | ED PDOC ---
- Laboratory Results Result Diagrams: 08/28/17 17:00 08/28/17 17:00 - ECG O2 Sat by Pulse Oximetry: 98 (RA) Disposition - Clinical Impression Clinical Impression: Influenza-like symptoms, Gastroenteritis - POA Present On Arrival: None - Disposition Referrals: [facility] [Outside] Disposition: Routine/Home Disposition Time: 18:22 Condition: FAIR Prescriptions: Ondansetron [Zofran] 4 mg PO Q8H #10 tab Oseltamivir [Tamiflu] 75 mg PO BID #10 cap Instructions: Flu, Adult (DC), Gastroenteritis (ED) Forms: [employer] (Dutch)
== END 2017-08-28 18:44 | disposition home or self-care (01) ==
LOC: H.ER 13:10 → H.EROB2 13:10 → H.ER 18:44
DX: O26.92 Pregnancy related conditions, unspecified, second trimester (principal); Z3A.22 22 weeks gestation of pregnancy; J11.1 Influenza due to unidentified influenza virus with other respiratory manifestations; K52.9 Noninfective gastroenteritis and colitis, unspecified; J45.909 Unspecified asthma, uncomplicated; O99.512 Diseases of the respiratory system complicating pregnancy, second trimester
CPT/HCPCS: 80053; 81003; 83690; 85025; 87070; 87430; 87804; 96374; 99283; J2405; J7120

== ENCOUNTER 2017-09-09 23:15 | Emergency (ER) | payer OTHER ==
[2017-09-09 23:53] VITALS: BMI 32.4
[2017-09-10 00:46] LABS: SQUAMOUS EPITHIAL 3 /hpf (0-5); URINE AMORPHOUS SEDIMENT RARE /ul (<OCC); URINE BILIRUBIN NEGATIVE (NEGATIVE); URINE BLOOD MODERATE (NEGATIVE); URINE CLARITY SLIGHTY-CLOUDY (Clear); URINE COLOR YELLOW (YELLOW); URINE GLUCOSE (UA) NEG (Normal); URINE LEUKOCYTE ESTERASE NEG Leu/uL (Negative); URINE NITRATE POSITIVE (NEGATIVE); URINE PROTEIN NEGATIVE (NEGATIVE); URINE UROBILINOGEN 0.2-1.0 mg/dL (0.2-1.0)
[2017-09-10 07:52] VITALS: BP 100/58; PULSE 87; RESP 18; TEMP 97.5; O2SAT 98
--- NOTE | 2017-09-10 09:01 | OBHP ---
Datetime: 09/10/2017 08:56 IP Adm Impression: , intrauterine ; No Active Labor IP Admit Plan: Observation/Evaluation; Discharge home Admit Comment, IP Provider: 27-year-old at 24 weeks and 1 day gestational age presents to the ED complaining of suprapubic tenderness and occasional dysuria. Patient denies any contractions, vagi nal bleeding, leakage of fluids. Patient reports good movement. Otherwise, patient without comp laints. Past medical history none Past surgical history appendectomy Medications vitamins No known drug allergies Obstetrical history Social history no tobacco, no drugs, no alcohol Physical exam: Physical exam findings Urinalysis: Positive nitrates, positive leukocytes Assessment: at 24 weeks gestational age with urinary tract infection Plan: Patient given prescription for 7 day course of Macrobid Follow-up in clinic this week Discussed with patient and all patient questions answered. Extremities - PN: Normal Abdomen - PN: Normal Back - PN: Normal HEENT - PN: Normal General - PN: Normal FHR - Baseline A Provider: 140s Membranes, Provider: Intact Contraction Comments Provider: none EGA AdmitDate IP: 24.1 Vital Signs Provider: Reviewed; Within Normal Limits IP Chief Complaint: Signs/symptoms UTI NICHD Variability Prov Fetus A: Moderate 6-25bpm NICHD Decel Fetus A IP Provider: None Dilatation, Provider: 0 Effacement, Provider: 0 Station, Provider: high Genitourinary Exam: Normal
== END 2017-09-10 02:00 | disposition home or self-care (01) ==
LOC: H.EROB2 23:15
DX: O23.42 Unspecified infection of urinary tract in pregnancy, second trimester (principal); Z3A.24 24 weeks gestation of pregnancy

== ENCOUNTER 2017-10-27 07:57 | Emergency (ER) | payer OTHER ==
[2017-10-27 10:48] VITALS: BMI 35.6
[2017-10-27 11:11] LABS: SQUAMOUS EPITHIAL 2 /hpf (0-5); URINE BACTERIA RARE (<OCC); URINE BILIRUBIN NEGATIVE (NEGATIVE); URINE BLOOD NEGATIVE (NEGATIVE); URINE CLARITY CLEAR (Clear); URINE COLOR YELLOW (YELLOW); URINE GLUCOSE (UA) NEG (Normal); URINE LEUKOCYTE ESTERASE NEG Leu/uL (Negative); URINE PROTEIN NEGATIVE (NEGATIVE); URINE UROBILINOGEN 0.2-1.0 mg/dL (0.2-1.0)
--- NOTE | 2017-10-27 11:15 | OBHP ---
Datetime: 10/27/2017 10:53 IP Adm Impression: , intrauterine ; No Active Labor; Intact Membranes IP Admit Plan: Observation/Evaluation Admit Comment, IP Provider: 27-year-old presents to the ED complaining of productive cough for 3 weeks. Patient also reports frequent urination and occasional small blood in stool. Patient denies any vaginal bleeding, leakage of fluids, contractions. Patient reports good movement. Otherwis e, patient without complaints. Past medical history mild asthma Past surgical history appendectomy Medications vitamins No known drug allergies Obstetrical history Social history no tobacco, no drugs, no alcohol Physical exam: Normal, referred to physical exam findings Assessment: 27-year-old at 30 weeks gestational age with symptoms of URI. No evidence of UTI this time. Discussed with patient that the small amount of bleeding with bowel movements is likely due to her he morrhoids. Discussed with patient and information regarding hemorrhoids and all patient questions ans wered. Patient instructed to use [id number] topical aids for hemorrhoid care. Plan: Plan to discharge patient to the main emergency department for evaluation of URI, possible flu. Extremities - PN: Normal Abdomen - PN: Normal Back - PN: Normal General - PN: Normal FHR - Baseline A Provider: 140s Membranes, Provider: Intact Contraction Comments Provider: none IP Hx Assessment: The History has been Reviewed and is Current EGA AdmitDate IP: 30.6 Vital Signs Provider: Reviewed; Within Normal Limits IP Chief Complaint: Illness NICHD Variability Prov Fetus A: Moderate 6-25bpm NICHD Accel Fetus A IP Provider: [id number] FHR Category Provider Fetus A: Category I NICHD Decel Fetus A IP Provider: None Dilatation, Provider: 0 Effacement, Provider: 0 Station, Provider: -4 Genitourinary Exam: Normal
[2017-10-31 20:23] VITALS: BP 105/66; PULSE 93; O2SAT 99
== END 2017-10-27 11:40 | disposition home or self-care (01) ==
LOC: H.EROB2 07:57
DX: O99.513 Diseases of the respiratory system complicating pregnancy, third trimester (principal); Z3A.30 30 weeks gestation of pregnancy

== ENCOUNTER 2017-10-27 11:59 | Emergency (ER) | payer OTHER ==
[2017-10-27 11:59] VITALS: BMI 35.6
[2017-10-27 12:12] VITALS: BP 107/64; PULSE 95; RESP 18; TEMP 98.7; O2SAT 97
[2017-10-27] MEDS ORDERED: Sodium Chloride 0.9% 1,000 ML IV SCH (12:15)
--- NOTE | 2017-10-27 12:18 | ED PDOC ---
HPI: Influenza Time Seen by Provider: 10/27/17 12:16 Chief Complaint: Flu-like Symptoms Chief Complaint (Provider): FEVER/URI/COUGH History Per: Patient (27 Y/O FEMALE G1 33 WEEK GESTATION HERE WITH FEVER/URI/ COUGH X 3 WEEKS. STATES FEVER RESOLVED THIS WEEK. SEEN IN ED OB FOR EVALUATION OF ABDOMINAL PAIN THAT OCCURS WITH COUGHING. NOTES INTERMITTENT VOMITING YESTERDAY AND TODAY.) Past Medical History Reviewed: Historical Data, Nursing Documentation, Vital Signs Vital Signs: Last Vital Signs Temp 98.7 F 10/27/17 12:11 Pulse 95 H 10/27/17 12:11 Resp 18 10/27/17 12:11 BP 107/64 10/27/17 12:11 Pulse Ox 97 10/27/17 12:11 - Medical History PMH: Asthma, Migraine - Surgical History Surgical History: Appendectomy - Family History Family History: States: Unknown Family Hx, Hypertension - Home Medications Home Medications: Ambulatory Orders Medication Instructions Recorded Ibuprofen [Advil] 2 tab PO PRN PRN 10/12/16 Cyclobenzaprine [Cyclobenzaprine 10 mg PO BID #14 tab 12/30/16 HCl] Ibuprofen [Motrin] 400 mg PO Q6 #30 tab 12/30/16 Ciprofloxacin 0.3% [Ciloxan 0.3% 1 drop BOTHEYES QID #1 bottle 01/04/17 Ophth SOLN] Olopatadine 0.1% Opht [Patanol 5 1 drop BOTHEYES BID #1 bottle 01/04/17 Ml] Albuterol 0.083% [Albuterol 0.5 ml IH Q4 #20 neb 04/21/17 Sulfate 3 Ml] Albuterol HFA [Ventolin HFA 90 2 puff IH Q6 #200 puff 04/21/17 mcg/actuation (8 g)] Azithromycin [Zithromax] 250 mg PO DAILY #6 tab 04/21/17 Mask, Face [Nebulizer Aerosol Mask 1 dev XX PRN PRN #1 dev 04/21/17 Adult] Non-Formulary 1 ea XX DAILY #1 ea 04/21/17 Famotidine [Pepcid] 40 mg PO DAILY PRN #14 tab 05/11/17 Metoclopramide [Reglan] 1 tab PO TID PRN #20 tab 11/02/17 Multivit/Folic Acid/I 1 tab PO DAILY #100 tab 05/11/17 [ Plus] Metoclopramide [Reglan] 10 mg PO Q6 PRN #12 tab 06/27/17 Nitrofurantoin Macrocrystals 100 mg PO BID #14 cap 06/27/17 [Macrobid] Ondansetron ODT [Zofran ODT] 4 mg PO Q6 PRN #10 odt 08/12/17 Ondansetron [Zofran] 4 mg PO Q8H #10 tab 08/28/17 Oseltamivir [Tamiflu] 75 mg PO BID #10 cap 08/28/17 Acetaminophen [Acetaminophen Extra 2 tab PO Q6 PRN #24 tablet 10/27/17 Strength] DiphenhydrAMINE [Benadryl] 25 mg PO Q8 PRN #10 cap 10/27/17 Ondansetron ODT [Zofran ODT] 4 mg PO Q8 PRN #10 odt 10/27/17 - Allergies Allergies/Adverse Reactions: Allergies Allergy/AdvReac Type Severity Reaction Status Date / Time No Known Allergies Allergy Verified 10/27/17 10:48 Review of Systems ROS Statement: Except As Marked, All Systems Reviewed And Found Negative Physical Exam - Reviewed Nursing Documentation Reviewed: Yes Vital Signs Reviewed: Yes - Physical Exam Appears: Positive for: Well, Non-toxic, No Acute Distress Head Exam: Positive for: ATRAUMATIC, NORMAL INSPECTION, NORMOCEPHALIC Skin: Positive for: Normal Color, Warm, DRY Eye Exam: Positive for: EOMI, Normal appearance, PERRL ENT: Positive for: Normal ENT Inspection, Nasal Congestion Neck: Positive for: Normal, Painless ROM Cardiovascular/Chest: Positive for: Regular Rate, Rhythm Respiratory: Positive for: CNT, Normal Breath Sounds Gastrointestinal/Abdominal: Positive for: Normal Exam, Soft Back: Positive for: Normal Inspection Extremity: Positive for: Normal ROM Neurologic/Psych: Positive for: Alert, Oriented - Laboratory Results Result Diagrams: 10/27/17 12:55 10/27/17 12:55 - ECG O2 Sat by Pulse Oximetry: 97 Disposition - Clinical Impression Clinical Impression: Viral illness - Patient ED Disposition Is Patient to be Admitted: No - Disposition Disposition: Routine/Home Disposition Time: 13:50 Condition: FAIR Prescriptions: Acetaminophen [Acetaminophen Extra Strength] 2 tab PO Q6 PRN #24 tablet PRN Reason: Headache DiphenhydrAMINE [Benadryl] 25 mg PO Q8 PRN #10 cap PRN Reason: Nasal Congestion Ondansetron ODT [Zofran ODT] 4 mg PO Q8 PRN #10 odt PRN Reason: Nausea/Vomiting Instructions: Viral Upper Respiratory Infection, Adult (DC) Forms: [employer] (Wolof) Print Language: INDONESIAN
[2017-10-27 13:09] LABS: BASO % 0.3 % (0.0-2.0); EOS # 0.1 K/uL (0.0-0.7); EOS % 0.8 % (0.0-4.0); HEMOGLOBIN 12.2 g/dL (12.0-16.0); LYMPH # 1.7 K/uL (1.0-4.3); MEAN CELL VOLUME 83.9 fl (81.0-99.0); MEAN CORPUSCULAR HEMOGLOBIN 27.6 pg (27.0-31.0); MEAN CORPUSCULAR HGB CONC 32.9 g/dL (33.0-37.0); MEAN PLATELET VOLUME 9.1 fl (7.2-11.7); MONO # 0.6 K/uL (0.0-0.8); MONO % 4.5 % (0.0-10.0); NEUT # 10.7 K/uL (1.8-7.0); NEUT % 81.4 % (50.0-75.0); RBC 4.42 Mil/uL (3.80-5.20); RED CELL DISTRIBUTION WIDTH 13.8 % (11.5-14.5); WHITE BLOOD COUNT 13.2 K/uL (4.8-10.8)
[2017-10-27 13:36] LABS: BLOOD UREA NITROGEN 7 mg/dl (7-17); CALCIUM 9.2 mg/dL (8.4-10.2); GFR AFRICAN-AMERICAN > 60; GFR NON-AFRICAN AMERICAN > 60
== END 2017-10-27 15:20 | disposition home or self-care (01) ==
LOC: H.ER 11:59
DX: B34.9 Viral infection, unspecified (principal); O26.893 Other specified pregnancy related conditions, third trimester; O99.513 Diseases of the respiratory system complicating pregnancy, third trimester; Z3A.33 33 weeks gestation of pregnancy
CPT/HCPCS: 80048; 85025; 87804; 96361; 96374; 99283; J2405; J7040